=== PATIENT | female | born 1970 | race Caucasian/White ===

== ENCOUNTER 2018-07-26 11:16 | Inpatient (IN) | payer MEDICAID ==
[~2018-07-26] VITALS: Ht 154.9 cm; Wt 85.0 kg
[2018-07-26] VITALS (15 sets, daily range): BP systolic 101–166; BP diastolic 59–97
[2018-07-26 12:01] LABS: BASOPHILS % (AUTO) 0.3 % (0-1); EOSINOPHILS # (AUTO) 0.1 X10'3 (0-0.9); HEMOGLOBIN 17.3 g/dl (12.0-16.0); NEUTROPHILS % (AUTO) 76.8 % (42-75); RED BLOOD COUNT 5.67 X10'6 (4.20-5.60)
[2018-07-26 12:03] LABS: EOSINOPHILS % (AUTO) 0.7 % (0-6); HEMATOCRIT 51.5 % (35.0-45.0); LYMPHOCYTES # (AUTO) 1.5 X10'3 (1.1-4.8); MEAN CORPUSCULAR HEMOGLOBIN 30.5 PG (27.0-31.0); MEAN CORPUSCULAR HGB CONC 33.6 g/dL (33.0-36.5); MEAN CORPUSCULAR VOLUME 90.8 FL (78-98); MEAN PLATELET VOLUME 11.1 FL (7.4-10.4); MONOCYTES # (AUTO) 1.1 X10'3 (0-0.9); MONOCYTES % (AUTO) 9.2 % (2-12); NEUTROPHILS # (AUTO) 9.1 X10'3 (1.8-7.7); RED CELL DISTRIBUTION WIDTH 13.7 % (11.5-14.5); WHITE BLOOD COUNT 11.9 X10'3 (4.5-11.0)
[2018-07-26 12:19] LABS: ALANINE AMINOTRANSFERASE 29 U/L (12-78); ALBUMIN 3.9 G/DL (3.4-5.0); ALKALINE PHOSPHATASE 107 IU/L (46-116); ANION GAP 11 (8-16); ASPARTATE AMINO TRANSFERASE 19 U/L (10-37); BILIRUBIN,TOTAL 1.3 MG/DL (0.1-1.0); BLOOD UREA NITROGEN 8 MG/DL (7-18); BUN/CREATININE RATIO 10.8 (6.6-38.0); CALCIUM 9.7 MG/DL (8.5-10.1); CHLORIDE 99 MMOL/L (99-107); CREATININE 0.74 MG/DL (0.40-0.90); GLUCOSE 87 MG/DL (70-104); POTASSIUM 3.6 MMOL/L (3.5-5.1); SODIUM 135 MMOL/L (135-145); TOTAL CARBON DIOXIDE 25.5 MMOL/L (24-32); TOTAL PROTEIN 7.8 G/DL (6.4-8.2); eGFR 84 ML/MIN
[2018-07-26] MEDS ORDERED: ondansetron/PF 4mg/2ml inj IV ONE (12:25)
[2018-07-26] MEDS ORDERED: normal saline 1000ML IV soln IVB ONE (12:25)
[2018-07-26] MEDS ORDERED: morphine 4 MG/ML inj SYRINge IV PRN ×3 (12:25→16:40)
[2018-07-26 12:26] LABS: PLATELET COUNT 244 X10'3 (140-440)
[2018-07-26] MEDS ORDERED: ketorolac trometh. 30mg/ml inj. IV ONE (12:30)
[2018-07-26 12:38] LABS: URINE HCG NEGATIVE (NEG)
[2018-07-26 12:39] LABS: CLARITY,URINE CLEAR (Clear); COLOR,URINE YELLOW (Yellow); GLUCOSE, URINE NEGATIVE (Neg); KETONES,URINE >=80 mg/dl (Neg); LEUKOCYTE ESTERASE ,URINE NEGATIVE (Neg); NITRITES, URINE NEGATIVE (Neg); OCCULT BLOOD,URINE NEGATIVE (Neg); PROTEIN,URINE 30 mg/dl (Neg)
[2018-07-26 12:40] LABS: UA COLLECTION TYPE CLN CATCH MIDSTREAM
[2018-07-26 12:44] LABS: BACTERIA,URINE FEW /HPF (Neg); MUCUS STRANDS FEW /LPF (Neg); RBC,URINE NONE SEEN /HPF (0-2); SQUAMOUS EPITHELIAL CELL,UR MANY /LPF (FEW); WBC,URINE NONE SEEN /HPF (0-4)
[2018-07-26 12:47] LABS: LIPASE 90 U/L (73-393)
--- NOTE | 2018-07-26 12:50 | NUR ---
electrical manufacturing technician at bedside.
[2018-07-26] MEDS ORDERED: ceFOXitin 1 GM ADDVANTAGE BAG 1,000 GM in normal saline 100ml IV soln 100 ML IV ONE (13:55)
[2018-07-26] MEDS ORDERED: normal saline 1000ml 1,000 ML IV SCH (13:56)
[2018-07-26] MEDS ORDERED: bisacodyl 10mg suppository rectal RC PRN (14:00)
[2018-07-26] MEDS ORDERED: potassium Cl 20 mEq SR tablet PO PRN ×2 (14:00)
[2018-07-26] MEDS ORDERED: HYDROmorphone inj. 0.5 MG/0.5 ML DISP.SYRIN IV PRN (14:00)
[2018-07-26] MEDS ORDERED: magnesium Cl slow-release 64mg tablet PO PRN (14:00)
[2018-07-26] MEDS ORDERED: magnesium 4gm in 100ml NS 100 ML IV PRN (14:00)
[2018-07-26] MEDS ORDERED: ondansetron/PF 4mg/2ml inj IV PRN ×2 (14:00→16:40)
[2018-07-26] MEDS ORDERED: magnesium 2GM in 50ml NS 50 ML IV PRN (14:00)
[2018-07-26] MEDS ORDERED: acetaminophen 325mg tablet PO PRN (14:00)
[2018-07-26] MEDS ORDERED: potassium Cl 40MEQ/NS 500ml 500 ML IV PRN ×2 (14:00)
[2018-07-26] MEDS ORDERED: HYDROmorphone 1 mg/ml syringe IV PRN (14:00)
[2018-07-26] MEDS ORDERED: CITA20TA19 PO (14:12)
[2018-07-26] MEDS ORDERED: BACL20TA PO (14:12)
[2018-07-26] MEDS ORDERED: PRAV40TA3 PO (14:12)
[2018-07-26] MEDS ORDERED: CHOL10002 PO (14:12)
[2018-07-26] MEDS ORDERED: TERI14TA PO (14:12)
[2018-07-26] MEDS ORDERED: piperacillin/tazo 3.375gm/50ml 50 ML IV SCH (14:21)
[2018-07-26] MEDS ORDERED: LIDOcaine 1% 30ml preserv. free vial ONE (14:28)
[2018-07-26] MEDS ORDERED: BUPIVAcaine/PF 2.5 mg/ml (0.25%) 30ml vial ONE (14:28)
--- NOTE | 2018-07-26 14:49 | NUR ---
dr. borges at bedside,Johann PRODUCTION LINE WORKER at bedside.willt whitley patient to or.
[2018-07-26] MEDS ORDERED: midazolam 2 mg/2 ml injection ONE (14:56)
[2018-07-26] MEDS ORDERED: fentaNYL /PF 50mcg/ml 5ml ampule ONE (14:57)
[2018-07-26] MEDS ORDERED: rocuronium 10mg/ml inj IV ONE (14:58)
[2018-07-26] MEDS ORDERED: propofol inj 20 ML IV ONE (14:58)
[2018-07-26] MEDS ORDERED: ondansetron/PF 4mg/2ml inj ONE (16:02)
[2018-07-26] MEDS ORDERED: dexamethasone sod phosphate 4mg/ml inj. ONE (16:02)
[2018-07-26] MEDS ORDERED: neostigmine methylsulfate 1 MG/ML 10ml vial ONE (16:05)
[2018-07-26] MEDS ORDERED: glycopyrrolate 0.2mg/ml inj ONE (16:05)
[2018-07-26] MEDS ORDERED: CADD PCA waste documentation MC PRN (16:30)
[2018-07-26] MEDS ORDERED: naloxone 0.4 mg/ml inj IV PRN (16:30)
[2018-07-26] MEDS ORDERED: HYDROmorphone/NS 1 mg/ml CADD 50 ML IV SCH (16:30)
--- NOTE | 2018-07-26 16:35 | NUR ---
Received from OR via , accompanied by Anesthesiologist DR LARSON and report given by Anesthesiolgist DR LARSON. PT IS AWAKE, ALERT, MOVES EXT X 4. NOTED WEAKNESS ON RIGHT LE DUE TO MS. PIV RIGHT HAND 20G WITH LR 100ML/HR, ABD HAS 3 LARGE BA'S CD WITH A KALIE DRAIN, TUBING COVERED WITH ISLAND DRESSING, PT STATES SHE HAS INCONTINENCE AND IS CURRENTLY USING A BEDPAN, SCD'S, NO C/O PAIN, VANESSA ICE WATER.
[2018-07-26] MEDS ORDERED: ringers solution, lacted 1,000 ML IV SCH (16:37)
[2018-07-26] MEDS ORDERED: meperidine/PF 25mg/ml syringe IV PRN ×3 (16:40)
[2018-07-26] MEDS ORDERED: proCHLORperazine 10 MG/2 ml inj IV PRN (16:40)
--- NOTE | 2018-07-26 17:09 | NUR ---
Report called to receiving nurse. Transferred via GURNEY Belongings [PANTS, SLIPPERS WITH PATIENT Special Issues communicated to receiving nurse MEGAN CABAN. PT IS AWAKE, ALERT, MOVENING EXT X 4, NO C/O PAIN, BA'S ON ABD CD, KALIE DRAINED OF 25MLS SANQ DRAINAGE, SCDS ON PT, PIV PATENT, CADD SET UP AND PT EDUCATED IN USE.
[2018-07-26] MEDS: Potassium Cl inj 20 MEQ in ringers solution, lacted 1,000 ML IV SCH (17:48)
--- NOTE | 2018-07-26 17:56 | NUR ---
UNABLE TO GET CADD TO SCAN. FLOOR NURSES ON SURGICAL OFFERED TO CONTINUE WORKING ON IT. CADD IS SET UP FOR PATIENT USE.
[2018-07-26] MEDS: HYDROmorphone/NS 1 mg/ml CADD 50 ML IV SCH ×3 (17:58→23:00)
--- NOTE | 2018-07-26 18:00 | NUR ---
Received report from ARSH Min. Patient arrived to floor. VSS. CADD set up. No complaints. Dressings CDI. minimal drainage in KALIE. Will give report to lieutenant shift supervisor RN.
--- NOTE | 2018-07-26 18:19 | NUR ---
Problems reprioritized. Patient report given, questions answered & plan of care reviewed with ARSH Sharp.
--- NOTE | 2018-07-26 18:31 | NUR ---
Patient in room [facility]. I have received report from Tatiana CABAN and had the opportunity to ask questions and assume patient care.
[2018-07-26] MEDS ORDERED: baclofen 10mg tablet PO ONE (21:35)
--- NOTE | 2018-07-26 21:47 | NUR ---
Rc'd order from Dr. Lomas for patient to have one time dose of her baclofen, all other meds are to be addressed by A.M. hospitalist.
[2018-07-26] MEDS: cefotetan 2gm/isosm dext IVPB 50 ML IV SCH (23:49)
[2018-07-27] VITALS: BP 100/58
[2018-07-27] MEDS ORDERED: ceFOXitin 1 GM ADDVANTAGE BAG 1,000 GM in normal saline 100ml IV soln 100 ML IV SCH ×2
[2018-07-27] MEDS: HYDROmorphone/NS 1 mg/ml CADD 50 ML IV SCH ×5 (01:00→09:00)
[2018-07-27] MEDS: Potassium Cl inj 20 MEQ in ringers solution, lacted 1,000 ML IV SCH (01:58)
--- NOTE | 2018-07-27 05:55 | NUR ---
Problems reprioritized. Patient report given, questions answered & plan of care reviewed with Nicole CABAN.
[2018-07-27 06:09] LABS: EOSINOPHILS % (AUTO) 0 % (0-6); HEMATOCRIT 40.4 % (35.0-45.0); LYMPHOCYTES # (AUTO) 0.7 X10'3 (1.1-4.8); LYMPHOCYTES % (AUTO) 6.5 % (21-51)
--- NOTE | 2018-07-27 06:10 | NUR ---
Patient in room [facility]. I have received report from Lila RN, tony RN, and had the opportunity to ask questions and assume patient care.
[2018-07-27 06:11] LABS: BASOPHILS % (AUTO) 0.3 % (0-1); HEMOGLOBIN 13.7 g/dl (12.0-16.0); MEAN CORPUSCULAR HEMOGLOBIN 30.8 PG (27.0-31.0); MEAN CORPUSCULAR VOLUME 90.6 FL (78-98); MEAN PLATELET VOLUME 11.6 FL (7.4-10.4); MONOCYTES # (AUTO) 0.7 X10'3 (0-0.9); MONOCYTES % (AUTO) 6.2 % (2-12); NEUTROPHILS # (AUTO) 9.5 X10'3 (1.8-7.7); PLATELET COUNT 207 X10'3 (140-440); RED BLOOD COUNT 4.46 X10'6 (4.20-5.60); RED CELL DISTRIBUTION WIDTH 13.7 % (11.5-14.5); WHITE BLOOD COUNT 10.9 X10'3 (4.5-11.0)
[2018-07-27 06:19] LABS: ALANINE AMINOTRANSFERASE 26 U/L (12-78); ALBUMIN 2.7 G/DL (3.4-5.0); ALBUMIN/GLOBULIN RATIO 0.9 (1.1-1.5); ALKALINE PHOSPHATASE 78 IU/L (46-116); ANION GAP 9 (8-16); ASPARTATE AMINO TRANSFERASE 32 U/L (10-37); BILIRUBIN,TOTAL 0.8 MG/DL (0.1-1.0); BLOOD UREA NITROGEN 6 MG/DL (7-18); BUN/CREATININE RATIO 9.7 (6.6-38.0); CALCIUM 8.6 MG/DL (8.5-10.1); CHLORIDE 106 MMOL/L (99-107); CREATININE 0.62 MG/DL (0.40-0.90); GLUCOSE 99 MG/DL (70-104); MAGNESIUM 1.8 MG/DL (1.5-2.4); POTASSIUM 4.5 MMOL/L (3.5-5.1); SODIUM 138 MMOL/L (135-145); TOTAL CARBON DIOXIDE 22.7 MMOL/L (24-32); TOTAL PROTEIN 5.8 G/DL (6.4-8.2); eGFR > 90 ML/MIN
[2018-07-27 06:46] LABS: LARGE PLATELETS FEW; PLATELET ESTIMATE NORMAL
[2018-07-27] MEDS: cefotetan 2gm/isosm dext IVPB 50 ML IV SCH (07:16)
[2018-07-27 08:00] VITALS: BP 93/56
[2018-07-27] MEDS ORDERED: K and/or MAG REPLACEMENT MC SCH (08:00)
[2018-07-27] MEDS ORDERED: enoxaparin 40mg/0.4ml syringe SQ SCH (08:00)
[2018-07-27] MEDS ORDERED: TERIFLUNOMIDE 14 MG PO SCH (11:40)
[2018-07-27] MEDS ORDERED: atorvastatin 10mg tablet PO SCH ×2 (11:41→21:00)
[2018-07-27] MEDS ORDERED: baclofen 10mg tablet PO SCH (11:41)
[2018-07-27] MEDS ORDERED: citalopram 20mg tablet PO SCH (11:42)
[2018-07-27] MEDS ORDERED: HYDR-4353 PO (11:45)
[2018-07-27] MEDS ORDERED: HYDROcodone/acetaminophen 10/325mg tab PO PRN (11:50)
[2018-07-27] MEDS ORDERED: magnesium hydroxide 30ml (MOM) UD suspension PO PRN (12:25)
[2018-07-27 12:50] VITALS: BP 89/46
--- NOTE | 2018-07-27 12:51 | NUR ---
Dr. Boland aware of low BP
--- NOTE | 2018-07-27 13:10 | NUR ---
Patient to be discharged after she eats lunch and tolerates.
--- NOTE | 2018-07-27 14:38 | NUR ---
Patient discharged with all belongings and education packet. Will call Dr. Boland with any questions. A&Ox4. VSS
[2018-07-28] MEDS ORDERED: vitamin D (cholecalciferol) 1,000 unit tablet PO SCH (08:00)
== END 2018-07-27 14:35 | disposition home or self-care (01) | DRG 263 ==
LOC: ER 11:17 → SUR 3N 16:03
PROVIDERS: ADMIT Surgery; ATTEND Surgery
PROC: 0DNL4ZZ Release Transverse Colon, Percutaneous Endoscopic Approach (ICD-10-PCS; 2018-07-26)
PROC: 0DNU4ZZ Release Omentum, Percutaneous Endoscopic Approach (ICD-10-PCS; 2018-07-26)
PROC: 0FN44ZZ Release Gallbladder, Percutaneous Endoscopic Approach (ICD-10-PCS; 2018-07-26)
PROC: 0FT44ZZ Resection of Gallbladder, Percutaneous Endoscopic Approach (ICD-10-PCS; principal; 2018-07-26 14:51)
DX: K80.00 Calculus of gallbladder with acute cholecystitis without obstruction (principal); G35 Multiple sclerosis; E78.5 Hyperlipidemia, unspecified; F17.210 Nicotine dependence, cigarettes, uncomplicated; K66.0 Peritoneal adhesions (postprocedural) (postinfection); F32.9 Major depressive disorder, single episode, unspecified; F41.9 Anxiety disorder, unspecified; G89.29 Other chronic pain; K59.00 Constipation, unspecified; Z90.49 Acquired absence of other specified parts of digestive tract; Z80.3 Family history of malignant neoplasm of breast; Z98.51 Tubal ligation status; Z80.42 Family history of malignant neoplasm of prostate; Z71.6 Tobacco abuse counseling; Z79.899 Other long term (current) drug therapy
CPT/HCPCS: 36415; 76700; 80053; 81001; 81025; 83690; 83735; 85025; 85610; 96365; 96375; 99285; A6251; A7000; G0378; J1100; J1170; J1650; J1885; J2250; J2405; J2543; J2704; J2710; J3010; J3480; J3490; J7030; J7120

== ENCOUNTER 2024-12-16 02:14 | Inpatient (IN) | payer MEDICAID ==
[~2024-12-16] VITALS: Ht 160 cm; Wt 78.8 kg
[~2024-12-16 02:14] MED LIST: BACL20TA PO; CHOL10002 PO; CITA20TA19 PO; PRAV40TA17 PO; TERI14TA2 PO
--- NOTE | 2024-12-16 02:35 | Physician Documentation ---
History of Present Illness ~ Chief Complaint: Hip pain Stated Complaint: HIP PAIN Time Seen by MD: 02:28 HPI Patient presents to the emergency room for evaluation of right hip pain. She is sent from [facility] for hip fracture. No other injuries. Medication Reconciliation Allergies: Coded Allergies: No Known Allergies (Unverified , 07/26/18) Scheduled Baclofen (Baclofen), 2 TABLET PO BID, (Reported) Cholecalciferol (Vitamin D3) (Vitamin D3), 2 TAB PO DAILY, (Reported) Citalopram Hydrobromide (Celexa), 1 TAB PO DAILY, (Reported) Pravastatin Sodium (Pravastatin Sodium), 1 TAB PO HS, (Reported) Teriflunomide (Aubagio), 1 TAB PO DAILY, (Reported) Past Medical History Past Surgical History: noncontributory Patient History: FH: breast cancer MOTHER FH: prostate cancer FATHER Alcohol Use: None Lives In: Home Review of Systems ROS All review of systems negative except as per HPI Physical Exam Physical Exam General: Patient is awake, alert, oriented x4 in mild distress Head: Normocephalic and atraumatic. Eyes: Conjunctival normal. EOMI. PERRL. ENT: Mucous membranes moist. Neck: Supple, trachea is midline. Chest: Clear to auscultation bilaterally without rales, rhonchi, or wheezes. There is no accessory muscle use or retractions. Cardiac: RRR without murmurs, gallops, or rubs. Abd: Soft, nondistended, nontender, with normoactive bowel sounds. No guarding, rebound, or rigidity. Extremities: Positive log roll to right hip. 2+ dorsalis pedis pulses bilaterally Medical Decision Making Findings Patient presents to the emergency room sent from [facility] with a right hip fracture. Patient's pain is currently controlled in his neurovascularly intact. We will admit for definitive management and orthopedic consult Differential Dx:Considerations: Include: Avascular necrosis, Arthritis, Arthritis-Rheumatoid, Arthritis-Septic, Bursitis, Contusion, Dislocation, DJD, Fracture-femur, Fracture-hip, Fracture-open, Fracture-pelvis, Gout, Hernia, Ptqg-Zmexx-xzuczyt dz., Neurovascular injury, Slip capital femoral epip, Sprain, Transient synovitis, Other Departure Admitted to Inpatient Unit: yes, to hospitalist Impression: Primary Impression: Fracture of femur Condition: Guarded Referrals: NO PRIMARY CARE PROVIDER (PCP) Signature Scribe Signature: No scribe Attestation: The note accurately reflects work and decisions made by me.Ab Sarkar MD 12/16/24 02:35 AB SARKAR MD Dec 16, 2024 02:35
[2024-12-16] MEDS ORDERED: magnesium Cl slow-release 64mg tablet PO PRN ×2 (03:45→04:55)
[2024-12-16] MEDS ORDERED: mag hydrox/Alum hydrox/simeth 30ml oral suspension PO PRN (03:45)
[2024-12-16] MEDS ORDERED: potassium Cl 40MEQ/1/2NS 520ml 520 ML IV PRN ×2 (03:45→04:55)
[2024-12-16] MEDS ORDERED: potassium Cl 20 mEq SR tablet PO PRN ×4 (03:45→04:55)
[2024-12-16] MEDS ORDERED: magnesium sulf-water 4G/100mL 100 ML IV PRN ×2 (03:45→04:55)
[2024-12-16] MEDS ORDERED: magnesium sulf-water 2g/50mL 50 ML IV PRN ×2 (03:45→04:55)
[2024-12-16] MEDS: HYDROmorphone inj. 0.5 MG/0.5 ML DISP.SYRIN IV ONE (03:54)
[2024-12-16] MEDS ORDERED: morphine 4 MG/ML inj SYRINge IV PRN (04:25)
[2024-12-16 04:36] LABS: LEUKOCYTE ESTERASE ,URINE TRACE (Neg); NITRITES, URINE POSITIVE (Neg); OCCULT BLOOD,URINE TRACE-INTACT (Neg)
[2024-12-16 04:42] LABS: UA COLLECTION TYPE NON-SPECIFIED
[2024-12-16 04:44] LABS: SQUAMOUS EPITHELIAL CELL,UR FEW /LPF (FEW)
--- NOTE | 2024-12-16 04:44 | HISTORY AND PHYSICAL-Residence ---
History & Physical Providers to CC Resident Creating Document: CAMERON MATHIS RES ~ History of Present Illness Reason for Admit\Complaint: Hip pain History of Present Illness 54-year-old female with history of hypertension, osteoporosis, anxiety, multiple sclerosis is transferred from [facility] for hip fracture. She states that she had a ground level fall in her hallway yesterday evening. She states that she just laid there for a few minutes until her came and called 911. She was taken to [facility] where x-ray hip was done and it showed acute displaced fracture seen in the greater tuberosity of left femur with osteoarthritic changes in left hip joint and was transferred here. She states that her pain is 5/10, and that there is no swelling or bruising. She states that she had an episode of vomiting when she went to [facility] from the pain. She denies nausea now. She denies head trauma and confusion. She states that she had burning micturition, frequency, urgency since yesterday and she was about to go to her PCP today. Her urinalysis in [facility] is positive for UTI. She also complains diffuse abdominal discomfort which has been constant since yesterday. Her last bowel movement was yesterday. She denies constipation, diarrhea, fever, chills, back pain, changes in appetite or weight, chest pain, shortness of breath, palpitations. She states that she has os teoporosis and takes calcium for it, she also took IV Reclast once. Allergies: Coded Allergies: No Known Allergies (Unverified , 12/16/24) Home Medications Home Medications Active Reported Vitamin D3 (Cholecalciferol (Vitamin D3)) 1,000 Unit Tablet 2 Tab PO DAILY 30 Days Celexa (Citalopram Hydrobromide) 20 Mg Tablet 1 Tab PO DAILY 30 Days Pravastatin Sodium 40 Mg Tablet 1 Tab PO HS 30 Days Aubagio (Teriflunomide) 14 Mg Tablet 1 Tab PO DAILY Baclofen 20 Mg Tablet 2 Tablet PO BID Past Medical History Past Medical History Osteoporosis Multiple sclerosis Hypertension Depression/ Anxiety Chronic pain Past Surgical History Surgical History Comment Tubal ligation Tonsillectomy Family History Family History: FH: breast cancer MOTHER FH: prostate cancer FATHER Past Social History Social History Comment She is an active smoker, she smokes 1.5 cigarettes per day for the past 35 years She drinks 4-6 beers every other day for the past 30 years She smokes marijuana everyday for the past 40 years She lives with her at home Alcohol Use: None Lives In: Home ROS ROS Constitutional: No fever, chills, dizziness, weight gain or loss Eyes: No pain, erythema, discharge, blurring of vision ENT: No sore throat, epistaxis, tinnitus Cardiovascular:No chest pain, palpitations, syncope, lower extremity edema, paroxysmal nocturnal dyspnea Respiratory: No Shortness of breath and cough, No hemoptysis. Gastrointestinal:Reports diffuse Abdominal discomfort, vomiting, No nausea,constipation,diarrhea. Normal appetite. No hematemesis or melena. Genitourinary: Reports burning micturition, frequency, urgency Musculoskeletal: Reports left hip pain, No Swelling, pain in bilateral lower legs. Integumentary: No change in skin, hair, nails. No swelling, bruising, abrasions Neurologic: No weakness,No headache, neck pain, numbness or tingling of the e xtremities, Psychiatric: No delusions, depression, loss of interest in normal activity or change in sleep pattern, hallucinations, suicidal ideations Endocrine: No fatigue, no weakness. polydipsia, polyuria, change in appetite, heat or cold intolerance, sweating, dry skin Hematological: No bleeding, petechiae, bruising Allergies: No asthma or urticaria Exam Vitals: Vital Signs Date Time Temp Pulse Resp B/P (MAP) Pulse Ox O2 Delivery O2 Flow Rate FiO2 12/16/24 03:56 95 14 114/69 (84) 96 12/16/24 02:39 97.5 0 General: Awake , alert, and oriented x4, resting comfortably in the bed, in no acute distress HEENT: Atraumatic, normocephalic, EOMI, anicteric sclera ; pink conjunctiva Neck: Trachea midline. Supple, full range of motion, no JVD Cardiac: Regular rhythm, regular rate with no murmurs all over the precordium. Respiratory: Equal breath sounds bilaterally, no tachypnea, no wheezing ,rub or rales, Chest wall is symmetric and without deformity. Gastrointestinal: Abdomen symmetric, non-distended, soft, non-tender, normal bowel sounds x4 quadrant, normoactive, no hepatosplenomegaly Musculoskeletal: Left hip tenderness present, decreased range of motion present, no bruising, swelling, No pedal edema, no cyanosis Neurological: Speech is clear, alert, and oriented x 4. No motor or sensory d eficit, deep tendon reflexes normal, cerebellar intact. Cranial nerves II-XII intact. Skin: Warm and dry Additional Plan Left femur fracture X-ray hip at [facility] shows acute displaced fracture of greater tuberosity of left femur with osteoarthritis changes in left hip joint Vitals are stable Plan: Consult orthopedic surgery Follow up CBC, CMP, coagulation profile UTI Urinalysis at [facility] is positive for UTI Started IV ceftriaxone 1 g daily Follow up urinalysis, urine culture Hypertension Blood pressure is normal Patient uses lisinopril 20 mg at home We will continue after med reconciliation Multiple sclerosis We will continue home medication baclofen, pending home med reconciliation Osteoporosis We will continue home medication calcium, pending home med reconciliation Depression/ Anxiety We will continue home medication citalopram after home med reconciliation Alcohol use disorder, drug abuse Consulted social studies department chair and substance use navigator Code status: Full code DVT prophylaxis: SCD Pain management: Morphine 1 mg/2 mg p.r.n. Diet/nutrition: NPO Prognosis: Guarded Disposition: Consult orthopedic surgery, PT eval and DC plan Resident MD attestation: The patient note has been reviewed and supervised by senior residents PGY-2/ PGY-3. Patient was seen, examined and discussed with attending physician. Cameron Mathis MD Internal Medicine resident, PGY-1 Date of Service: Dec 16, 2024 Billing Provider: MICHELLE MONGE MD, PREETHI, RES Dec 16, 2024 04:44
[2024-12-16] MEDS ORDERED: dextrose 50%-water 50ml dispensing syringe IV PRN (04:55)
[2024-12-16] MEDS ORDERED: haloperidol lactate 5mg/ml inj IM PRN (04:55)
[2024-12-16] MEDS ORDERED: LISI20TA28 PO (04:56)
[2024-12-16] MEDS ORDERED: BUSP10TA11 PO ×2 (04:58→12:53)
[2024-12-16 05:00] VITALS: BP 95/62; PULSE 87; RESP 16; TEMP 97.2; O2SAT 94
[2024-12-16] MEDS ORDERED: IBUP-1986 PO (05:01)
[2024-12-16 05:05] LABS: URINE AMPHETAMINE SCREEN NEGATIVE (Neg); URINE BARBITUATE SCREEN NEGATIVE (Neg); URINE BENZODIAZEPINES SCREEN NEGATIVE (Neg); URINE CANNABINOID SCREEN POSITIVE (Neg); URINE COCAINE SCREEN NEGATIVE (Neg); URINE METHADONE SCREEN NEGATIVE (Neg); URINE OPIATE SCREEN POSITIVE (Neg); URINE PHENCYCLIDINE SCREEN NEGATIVE (Neg)
[2024-12-16 06:00] VITALS: BP 95/62; PULSE 87; RESP 16; TEMP 97.2; O2SAT 94
[2024-12-16 06:04] LABS: MEAN PLATELET VOLUME 10.4 FL (7.4-10.4); RED CELL DISTRIBUTION WIDTH 13.9 % (11.5-14.5)
[2024-12-16 06:16] LABS: APTT 28 SECONDS (22-32); INR 1.0 INR
[2024-12-16 06:26] LABS: CREATININE 0.44 MG/DL (0.40-0.90); PHOSPHORUS 4.4 MG/DL (2.3-4.5); PRO BRAIN NATRIURETIC PEPTIDE 48 PG/ML (0-125); TOTAL CARBON DIOXIDE 23.6 MMOL/L (24-32); eCRCL 121 ML/MIN; eGFR > 90 ML/MIN
[2024-12-16] MEDS: thiamine 100mg/ml 2ml inj. IV SCH (07:49)
[2024-12-16] MEDS: ibuprofen tablet 400 MG TABLET PO SCH (07:52)
[2024-12-16] MEDS: CefTRIAXone/D5W-Rocephin 1gm 50 ML IV SCH (07:56)
[2024-12-16 08:00] VITALS: RESP 14
[2024-12-16] MEDS: docusate sod 100mg capsule PO SCH (08:00)
[2024-12-16] MEDS: K and/or MAG REPLACEMENT MC SCH (08:00)
[2024-12-16] MEDS: folic acid 1mg/0.2ml inj IV SCH (08:00)
[2024-12-16] MEDS ORDERED: K and/or MAG REPLACEMENT MC SCH (08:00)
--- NOTE | 2024-12-16 08:52 | ELECTROCARDIOGRAPH REPORT ---
[facility] Test Date: 2024-12-16 Test Time: 02:53:01 Pat Name: CORBY MALDONADO Department: EMERGENCY ROOM Room: [place] [id number] A Gender: F Blind Escort: : 1970 Requested By: ANA MAZARIEGOS Order Number: [id number] Reading MD: Dr. Moy Sahu Measurements Intervals [place] Rate: 88 P: 59 UT: 128 QRS: 38 QRSD: 90 T: 31 QT: 358 QTc: 434 Interpretive Statements Sinus rhythm Electronically Signed On 12-17-2024 21:42:[address] Moy Sahu Please click the below link to view image of tracing.
--- NOTE | 2024-12-16 10:00 | RADIOLOGY REPORT ---
CLINICAL INDICATION: pain hip fracture TECHNIQUE: 1 radiographic views of the pelvis and 1 view of the left hip were obtained. Comparison: None FINDINGS/IMPRESSION: There is a mildly displaced fracture of the left intertrochanteric region.
[2024-12-16 11:52] LABS: ETHANOL < 10 MG/DL (<10)
[2024-12-16] MEDS: FLU VACC TS2025-26(6MOS UP)/PF (FLULAVAL) 45 MCG/0.5 ML SYRINGE IMVAC ONE (12:20)
--- NOTE | 2024-12-16 12:33 | CONSULTATION REPORT ---
History of Present Illness Providers to CC ~ Reason for Admit\\Admit Dx: Hip pain Refering MD: Dr Brand History of Present Illness she is a 54 yr old woman Patient presents to the emergency room for evaluation of right hip pain after mechanical fall. She is sent from [facility] for hip fracture. No other injuries. History of MS, uses a walker, left leg is her :good" leg. Reports numbness to the bottom of her feet, normally Allergies: Coded Allergies: No Known Allergies (Unverified , 12/16/24) Home Medications Home Medications Active Reported Ibuprofen 800 Mg Tablet 1 Tab PO BID 10 Days Buspar* (Buspirone HCl) 10 Mg Tablet 1 Tab PO Q12H 30 Days Lisinopril 20 Mg Tablet 1 Tab PO DAILY 30 Days Celexa (Citalopram Hydrobromide) 20 Mg Tablet 1 Tab PO DAILY 30 Days Pravastatin Sodium 40 Mg Tablet 1 Tab PO HS 30 Days Baclofen 20 Mg Tablet 2 Tablet PO BID Past Medical History Medical History Comment Multiple Sclerosis Past Family History Family History: FH: breast cancer MOTHER FH: prostate cancer FATHER Physical Exam Last Vital Signs Recorded: Temperature: 97.2, Source: Temporal, Heart Rate: 87, Respiratory Rate: 14, BP: 95/62, Pulse Oximetry: 94, Weight: 78.800 General Appearance: alert, WD/WN, no apparent distress EENT: PERRL/EOMI Neck: normal inspection Respiratory: lungs clear Extremities l hip skin intact, tender groin and lateral hip, leg slightly short, knee ankle nontender Results Results/Orders Results/Orders left hip intertrochanteric fracture with intact joint Diagram Lab Result Diagram: 12/16/24 0523 12/16/24522 Assessment/Plan Problems/Diagnosis: (1) Intertrochanteric fracture of left femur Additional Plan plan ORIF tomorrow morning, NPO after midnight Risks and beneftis discussed with patient anf her Problem Qualifiers (1) Intertrochanteric fracture of left femur: Qualified Codes: S72.142A - Displaced intertrochanteric fracture of left femur, initial encounter for closed fracture ANNE BAUTISTA Jr., MD Dec 16, 2024 12:33
[2024-12-16 14:00] VITALS: BP 112/59; PULSE 91; RESP 14; TEMP 98; O2SAT 93
--- NOTE | 2024-12-16 16:42 | PROGRESS NOTE- Residence ---
Progress Note - Resident Providers to CC Resident Creating Document: NAWAF MULLEN RES CC: BLANQUITA PASCUAL MD ~ Antibiotic Timeout Antibiotic Ordered?: Yes Subjective Patient was seen and examined at bedside. Patient stated that she does have mild pain near the left hip. Patient does not have any other acute symptoms at this point Objective Vital Signs Date Time Temp Pulse Resp B/P (MAP) Pulse Ox O2 Delivery O2 Flow Rate FiO2 12/16/24 14:00 98.0 91 14 112/59 (76) 93 Room Air 12/16/24 02:39 0 Result Diagram: 12/16/2452212/16/24522 General: Awake, oriented to person, place and time. HEENT: Conjunctive are pink, sclerae clear, no icterus, pupil is equal in both sides, reactive to light, no ear discharge, no pharyngeal erythema or an edema. Neck: Supple, no JVD, no lymphadenopathy and thyromegaly. Chest: Equal air entry on both lungs, no additional sounds no rhonchi no wheezing at the moment. Cardiovascular: S1-S2 regular sinus rhythm and, regular rate, no gallops, no rubs, no murmurs Abdomen: No visible peristalsis, Bowel sounds present on auscultation, soft, no guarding, no rigidity Extremities: no pitting edema bilaterally, capillary refill intact, peripheral pulsations are intact on both sides; left tender groin and lateral hip, left leg appears slightly short Central Nervous System: No focal neurological deficits, no motor or sensory weakness in all 4 extremities, could move all 4 extremities, 2+ deep tendon reflexes, negative Babinski. Musculoskeletal: No joint swelling, deformities, inflammations, and no scoliosis and back tenderness Skin: Warm and dry. Dry oral mucosa. Coagulation Studies Laboratory Tests Test 12/16/24 05:23 Prothrombin Time 10.2 SECONDS (9.0-12.0) INR International Normalized Ratio 1.0 INR Activated Partial Thromboplast Time 28 SECONDS (22-32) Coagulation Comments Advance Care Planning Advanced Care plannin - 30 Minutes Assessment Assessment A 54-year-old female with history of hypertension, osteoporosis, anxiety, multiple sclerosis is transferred from [facility] for hip fracture after mechanical fall. Plan Plan Left femur fracture Post mechanical fall X-ray hip at [facility] shows acute displaced fracture of greater tuberosity of left femur with osteoarthritis changes in left hip joint Repeat hip x-ray at our facility showed :There is a mildly displaced fracture of the left intertrochanteric region. Orthopedic surgeon Dr. Ramos was consulted Plan recommended ORIF tomorrow -NPO from midnight -continue morphine 2 mg q.4h p.r.n. and 1 mg q.4h p.r.n. Urinary tract infection Urinalysis at [facility] is positive for UTI Urinalysis at our facility also tested positive for nitrates and leukocyte esterase, WBC elevated at 11.2 Plan Continue ceftriaxone Follow up urinalysis, urine culture Hypertension Blood pressure normal range Continue Patient's home medication lisinopril 20 mg Multiple sclerosis Continue home medication baclofen History of Osteoporosis Patient's previous reconciled med shows vitamin-D tablet We will recommend calcium and vitamin-D supplementations on discharge Depression/ Anxiety Continue home medication buspirone and citalopram Alcohol use disorder, drug abuse Initiated the patient on moderate alcohol withdrawal protocol Utox was positive for cannabinoids Ethyl alcohol <10 Patient stated that her last drink was two days ago Consulted criminal justice social worker and substance use navigator Code status: Full code DVT prophylaxis: SCD Pain management: Morphine 1 mg/2 mg p.r.n. Diet/nutrition: NPO after midnight Prognosis: Guarded Disposition: Patient will undergo ORIF tomorrow by Dr. Ramos. NPO after midnight Nawaf Mullen MD Internal medicine resident PGY-1 Date of Service: Dec 16, 2024 Billing Provider: BLANQUITA PASCUAL MD Common Visit Codes: [id number] INP/OBS CARE(HIGH) NAWAF MULLEN, RES Dec 16, 2024 16:42 BLANQUITA PASCUAL MD Dec 17, 2024 08:38
[2024-12-16 18:30] VITALS: BP 133/78; PULSE 100; RESP 16; TEMP 98.2; O2SAT 93
[2024-12-16 22:00] VITALS: BP 121/57; PULSE 94; RESP 15; TEMP 96.4; O2SAT 94
[2024-12-17] VITALS (19 sets, daily range): BP systolic 86–136; BP diastolic 37–75; PULSE 67–97; RESP 10–18; TEMP 97–98.4; O2SAT 79–100
[2024-12-17 05:46] LABS: MEAN PLATELET VOLUME 10.4 FL (7.4-10.4); RED CELL DISTRIBUTION WIDTH 13.7 % (11.5-14.5)
[2024-12-17] MEDS: ondansetron/PF 4mg/2ml inj IV PRN (05:54)
[2024-12-17] MEDS: morphine 4 MG/ML inj SYRINge IV PRN (05:55)
[2024-12-17 06:08] LABS: CHOL/HDL RATIO 3.6 (0.00-4.99); CREATININE 0.48 MG/DL (0.40-0.90); LDL CHOLESTEROL 125 MG/DL (50-100); TOTAL CARBON DIOXIDE 26.2 MMOL/L (24-32); eCRCL 111 ML/MIN; eGFR > 90 ML/MIN
[2024-12-17] MEDS ORDERED: BUPIVAcaine 2.5mg/ml inj 50ml vial (contains preservative) ONE (06:49)
[2024-12-17] MEDS ORDERED: fentaNYL/PF 50MCG/1 ML 2ML syringe ONE ×2 (07:22→07:57)
[2024-12-17] MEDS ORDERED: midazolam 1 mg/ML 2ml injection ONE (07:23)
[2024-12-17] MEDS ORDERED: acetaminophen 1,000mg/100ml IV 100 ML IV ONE ×2 (07:34)
[2024-12-17] MEDS ORDERED: propofol inj 20 ML IV ONE (07:34)
[2024-12-17] MEDS ORDERED: LIDOcaine 1%/PF 5ML 10 MG/ML VIAL ONE (07:34)
[2024-12-17] MEDS ORDERED: dexamethasone sod phosphate 4mg/ml inj. ONE (07:37)
[2024-12-17] MEDS ORDERED: ondansetron/PF 4mg/2ml inj ONE (07:37)
[2024-12-17] MEDS ORDERED: enalaprilat 1.25mg/ml 2ml vial IV PRN (08:10)
[2024-12-17] MEDS ORDERED: ondansetron/PF 4mg/2ml inj IV PRN (08:10)
[2024-12-17] MEDS ORDERED: morphine 4 MG/ML inj SYRINge IV PRN (08:10)
[2024-12-17] MEDS ORDERED: HYDROmorphone/PF 0.2 MG/ML SYRINGE IV PRN ×2 (08:10)
[2024-12-17] MEDS ORDERED: hydrALAZINE 20mg/ml inj. IV PRN (08:10)
--- NOTE | 2024-12-17 08:19 | OPERATIVE REPORT ---
Operative Report Providers to ~ Date of Procedure: Dec 17, 2024 Pre-Operative Diagnosis: Left hip intertrochanteric fracture closed Post-Operative Diagnosis SAME as PRE-Op Procedure Performed Open reduction internal fixation left hip intertrochanteric fracture Surgeon: Cj Ramos MD Ultrasound Manager None Anesthesiologist: Joo Abbott Type of Anesthesia: General Findings: Prosthetics\Implants used: [employer] hip fracture nail 130 degree angle 11 mm x 320 mm with 95 mm hip screw Estimated Blood Loss: 50 mL Specimen Removed: None Description of Procedure: The patient is a 54-year-old woman with a history of multiple sclerosis who suffered a fall injuring her left hip. He has an intertrochanteric fracture that requires surgery for stabilization. Risks and benefits were discussed with the patient and her . The risks include but not limited to bleeding, nerve or vessel damage, failure of fixation, blood clots and even . She agreed to proceed. Anesthetic was given in the operating room along with the antibiotics. She was placed on the fracture table and positioned appropriately. The left hip and leg were prepped and draped in usual manner an incision was made superior to the greater trochanter on the left and under fluoro guidance a guide pin was advanced down the shaft of the femur. Over drilling was done and the because prior measurements were done selecting the proper nail the nail was advanced down the femoral canal. A 2nd incision was made over the lateral femur for placed with the hip screw. A guide pin was drilled into the femoral head and measured and position was checked under fluoro. The drilling was done and the screw was placed and locked in its proper orientation. The insertion guide was removed and final fluoro images were obtained. Fracture was well reduced this point. Incision was were irrigated and closed with suture. Marcaine was injected and a dressing was then applied. She was taken off the fracture table and returned to the recovery room in stable condition. She tolerated the procedure well. Counts repoted as correct: Yes CJ RAMOS Jr., MD Dec 17, 2024 08:19
[2024-12-17] MEDS: BUPIVAcaine/PF 2.5 mg/ml (0.25%) 30ml vial IJ ONE (08:23)
--- NOTE | 2024-12-17 09:28 | RADIOLOGY REPORT ---
LEFT HIP RADIOGRAPH. CLINICAL INDICATION: post op LEFT HIP TECHNIQUE: 4 views of the left hip were obtained. FINDINGS: ORIF of the left hip transfixing proximal femoral shaft fracture IMPRESSION: 1. ORIF of the left hip transfixing proximal femoral shaft fracture
--- NOTE | 2024-12-17 18:48 | PROGRESS NOTE- Residence ---
Progress Note - Resident Providers to CC Resident Creating Document: NAWAF MULLEN RES CC: LAILA HORN MD ~ Antibiotic Timeout Antibiotic Ordered?: Yes Subjective Patient was seen and examined at bedside. Patient stated that she does have mild pain near the left hip. Patient underwent ORIF procedure today Objective Vital Signs Date Time Temp Pulse Resp B/P (MAP) Pulse Ox O2 Delivery O2 Flow Rate FiO2 12/17/24 13:18 93 12/17/24 09:28 16 94/50 (65) 95 Nasal Cannula 3.0 12/17/24 08:27 97.7 Result Diagram: 12/17/2415 12/17/2415 General: Awake, oriented to person, place and time. HEENT: Conjunctive are pink, sclerae clear, no icterus, pupil is equal in both sides, reactive to light, no ear discharge, no pharyngeal erythema or an edema. Neck: Supple, no JVD, no lymphadenopathy and thyromegaly. Chest: Equal air entry on both lungs, no additional sounds no rhonchi no wheezing at the moment. Cardiovascular: S1-S2 regular sinus rhythm and, regular rate, no gallops, no rubs, no murmurs Abdomen: No visible peristalsis, Bowel sounds present on auscultation, soft, no guarding, no rigidity Extremities: no pitting edema bilaterally, capillary refill intact, peripheral pulsations are intact on both sides; left lower extremity covered in surgical dressing Central Nervous System: No focal neurological deficits, no motor or sensory weakness in all 4 extremities, could move all 4 extremities, 2+ deep tendon reflexes, negative Babinski. Musculoskeletal: No joint swelling, deformities, inflammations, and no scoliosis and back tenderness Skin: Warm and dry. Dry oral mucosa. Coagulation Studies Laboratory Tests Test 12/16/24 05:23 Prothrombin Time 10.2 SECONDS (9.0-12.0) INR International Normalized Ratio 1.0 INR Activated Partial Thromboplast Time 28 SECONDS (22-32) Coagulation Comments Advance Care Planning Advanced Care plannin - 30 Minutes Assessment Assessment A 54-year-old female with history of hypertension, osteoporosis, anxiety, multiple sclerosis is transferred from [facility] for hip fracture after mechanical fall. Plan Plan Left femur fracture post mechanical fall s/p ORIF today X-ray hip at [facility] shows acute displaced fracture of greater tuberosity of left femur with osteoarthritis changes in left hip joint Repeat hip x-ray at our facility showed :There is a mildly displaced fracture of the left intertrochanteric region. Orthopedic surgeon Dr. Ramos was consulted, the patient underwent ORIF procedure today Plan -continue morphine 2 mg q.4h p.r.n. and 1 mg q.4h p.r.n. Recommended incentive spirometer Urinary tract infection Urinalysis at [facility] is positive for UTI Urinalysis at our facility also tested positive for nitrates and leukocyte esterase, WBC elevated at 11.2 Urine culture reported Gram-negative rods Plan Continue ceftriaxone Hypertension Blood pressure normal range Continue Patient's home medication lisinopril 20 mg Multiple sclerosis Continue home medication baclofen History of Osteoporosis Patient's previous reconciled med shows vitamin-D tablet We will recommend calcium and vitamin-D supplementations on discharge Depression/ Anxiety Continue home medication buspirone and citalopram Alcohol use disorder Cannabinoid use Initiated the patient on moderate alcohol withdrawal protocol Utox was positive for cannabinoids Ethyl alcohol <10 Consulted social media analyst and substance use navigator Code status: Full code DVT prophylaxis: SCD Pain management: Morphine 1 mg/2 mg p.r.n. Diet/nutrition: Regular diet Prognosis: Guarded Disposition: Plan discharge plan as per Dr. Rachel Mullen MD Internal medicine resident PGY-1 Date of Service: Dec 17, 2024 Billing Provider: LAILA HORN MD, JAHNAVI, RES Dec 17, 2024 18:48 SARAH SINGH, RES Dec 18, 2024 07:36
[2024-12-17] MEDS: ringers solution, lacted 1,000 ML IV SCH (18:54)
[2024-12-18] VITALS (9 sets, daily range): BP systolic 89–130; BP diastolic 45–84; PULSE 84–117; RESP 12–20; TEMP 97–97.9; O2SAT 91–96
[2024-12-18 06:12] LABS: CREATININE 0.39 MG/DL (0.40-0.90); TOTAL CARBON DIOXIDE 28.2 MMOL/L (24-32); eCRCL 136 ML/MIN; eGFR > 90 ML/MIN
[2024-12-18 06:15] LABS: MEAN PLATELET VOLUME 10.7 FL (7.4-10.4); RED CELL DISTRIBUTION WIDTH 13.7 % (11.5-14.5)
[2024-12-18] MEDS: normal saline 500ml IV soln 500 ML IV ONE (10:59)
--- NOTE | 2024-12-18 12:11 | PROGRESS NOTE- Residence ---
Progress Note - Resident Providers to CC Resident Creating Document: MARITA STEVEN RES ~ Antibiotic Timeout Antibiotic Ordered?: Yes Subjective Patient was seen and examined at bedside. Patient is complaining of 3/10 pain left knee and left hip incision site, controlled with medication. He is tolerating oral diet, no other symptoms reported. Objective Vital Signs Date Time Temp Pulse Resp B/P (MAP) Pulse Ox O2 Delivery O2 Flow Rate FiO2 12/18/24 10:40 94 122/63 (82) 99 103/69 (80) 99 97/47 (64) 12/18/24 09:57 17 95 Room Air 12/18/24 06:00 97.9 12/17/24 10:15 2.0 Result Diagram: 12/18/24 0503 12/18/24 0503 General: Awake, oriented to person, place and time. HEENT: Conjunctive are pink, sclerae clear, no icterus, pupil is equal in both sides, reactive to light, no ear discharge, no pharyngeal erythema or an edema. Neck: Supple, no JVD, no lymphadenopathy and thyromegaly. Chest: Equal air entry on both lungs, no additional sounds no rhonchi no wheezing at the moment. Cardiovascular: S1-S2 regular sinus rhythm and, regular rate, no gallops, no rubs, no murmurs Abdomen: Soft, nontender, Bowel sounds present on auscultation, no guarding, no rigidity Extremities: Trace left extremity pitting edema, capillary refill intact, peripheral pulsations are intact on both sides; left lower extremity covered in surgical dressing Central Nervous System: No focal neurological deficits, no motor or sensory weakness in all 4 extremities, could move all 4 extremities, 2+ deep tendon reflexes, negative Babinski. Musculoskeletal: No joint swelling, deformities, inflammations, and no scoliosis and back tenderness Skin: Warm and dry. Dry oral mucosa. Coagulation Studies Laboratory Tests Test 12/16/24 05:23 Prothrombin Time 10.2 SECONDS (9.0-12.0) INR International Normalized Ratio 1.0 INR Activated Partial Thromboplast Time 28 SECONDS (22-32) Coagulation Comments Assessment Assessment A 54-year-old female with history of hypertension, osteoporosis, anxiety, multiple sclerosis is transferred from [facility] for hip fracture after mechanical fall. Plan Plan Left intertrochanteric fracture secondary to mechanical fall S/p open reduction internal fixation on 12/17/[address] Ramos X-ray hip at [facility] shows acute displaced fracture of greater tuberosity of left femur with osteoarthritis changes in left hip joint Repeat hip x-ray at our facility showed :There is a mildly displaced fracture of the left intertrochanteric region. Orthopedic surgeon Dr. Ramos was consulted, the patient underwent ORIF procedure today -continue morphine 2 mg q.4h p.r.n. and 1 mg q.4h p.r.n. Recommended incentive spirometer 12/18/2024 POD-1 uncomplicated open reduction internal fixation Working with physical therapy - D/C plan: home Pain management Positive for orthostatic hypotension today NS 500 mL bolus one time Urinary tract infection Urinalysis at [facility] is positive for UTI Urinalysis at our facility also tested positive for nitrates and leukocyte esterase, WBC elevated at 11.2 Urine culture reported Gram-negative rods Plan Continue ceftriaxone 12/18/2024 Ceftriaxone day 3 WBC 13.1, procalcitonin < 0.05 UA culture: E coli pansensitive DC Sultana Hypertension - well controlled Blood pressure normal range Continue Patient's home medication lisinopril 20 mg Multiple sclerosis Continue home medication baclofen History of Osteoporosis Patient's previous reconciled med shows vitamin-D tablet We will recommend calcium and vitamin-D supplementations on discharge Depression/ Anxiety Continue home medication buspirone and citalopram Alcohol use disorder Cannabinoid use Initiated the patient on moderate alcohol withdrawal protocol Utox was positive for cannabinoids Ethyl alcohol <10 Consulted social sciences department chair and substance use navigator Code status: Full code DVT prophylaxis: SCD Pain management: Morphine/[place] Diet/nutrition: Regular diet Prognosis: Guarded Disposition: Continue medical treatment. D/c once surgery clearance. Resident attestation The above note has been reviewed and supervised by a senior resident PGY2/PGY3 Patient was seen, examined and discussed with the attending physician Date of Service: Dec 18, 2024 Billing Provider: LAILA HORN MD, LUCAS, RES Dec 18, 2024 12:11
[2024-12-18] MEDS: HYDROcodone/acetaminophen 5mg/325mg tablet PO PRN (12:42)
[2024-12-18] MEDS: magnesium hydroxide 30ml (MOM) UD suspension PO PRN (12:44)
[2024-12-19] VITALS (7 sets, daily range): BP systolic 88–142; BP diastolic 44–66; PULSE 81–101; RESP 14–16; TEMP 97.3–98.5; O2SAT 93–97
[2024-12-19 06:17] LABS: CREATININE 0.49 MG/DL (0.40-0.90); MEAN PLATELET VOLUME 10.6 FL (7.4-10.4); RED CELL DISTRIBUTION WIDTH 13.7 % (11.5-14.5); TOTAL CARBON DIOXIDE 28.6 MMOL/L (24-32); eCRCL 109 ML/MIN; eGFR > 90 ML/MIN
[2024-12-19] MEDS: normal saline 250 ML IV soln IV ONE (08:58)
--- NOTE | 2024-12-19 09:05 | PROGRESS NOTE ---
Progress Note Ortho Ortho Post Op Day #: 2 Follow Up ROS ROS No new complaints Exam Exam: Alert and Oreinted x4, Wound clean and dry Problem/Assessment/Plan Assessment\Plan: Cont. Physicial Therapy, Anticipate disch to rehab (Saturday or Saturday) Problems/Diagnosis: (1) Intertrochanteric fracture of left femur Results/Orders Result Diagram: 12/19/24 0508 12/19/24 0508 Problem Qualifiers (1) Intertrochanteric fracture of left femur: Qualified Codes: S72.142A - Displaced intertrochanteric fracture of left femur, initial encounter for closed fracture ANNE BAUTISTA Jr., MD Dec 19, 2024 09:05
[2024-12-19] MEDS: ringers solution, lacted 1,000 ML IV SCH (11:00)
--- NOTE | 2024-12-19 15:30 | PROGRESS NOTE- Residence ---
Progress Note - Resident Providers to CC Resident Creating Document: REYNA TUTTLE RES ~ Antibiotic Timeout Antibiotic Ordered?: Yes Subjective Patient was seen and examined on bedside, she reports minimal pain on surgical site, she feels dizzy because she reports that her BP is low since last night. Objective Vital Signs Date Time Temp Pulse Resp B/P (MAP) Pulse Ox O2 Delivery O2 Flow Rate FiO2 12/19/24 08:00 71 12/19/24 06:00 98.1 14 88/44 (59) 93 Room Air 12/17/24 10:15 2.0 Result Diagram: 12/19/24 0508 12/19/24 0508 General: Awake, oriented to person, place and time. HEENT: Conjunctive are pink, sclerae clear, no icterus, pupil is equal in both sides, reactive to light, no ear discharge, no pharyngeal erythema or an edema. Neck: Supple, no JVD, no lymphadenopathy and thyromegaly. Chest: Equal air entry on both lungs, no additional sounds no rhonchi no wheezing at the moment. Cardiovascular: S1-S2 regular sinus rhythm and, regular rate, no gallops, no rubs, no murmurs Abdomen: Soft, nontender, Bowel sounds present on auscultation, no guarding, no rigidity Extremities: Trace left extremity pitting edema, capillary refill intact, peripheral pulsations are intact on both sides; left lower extremity covered in surgical dressing Neuro: Decreased sensation bilateral lower extremities, power of muscles 3/5 lower extremities due to MS as per patient. Cranial nerves intact. Musculoskeletal: No joint swelling, deformities, inflammations, and no scoliosis and back tenderness Skin: Warm and dry. Dry oral mucosa. Coagulation Studies Laboratory Tests Test 12/16/24 05:23 Prothrombin Time 10.2 SECONDS (9.0-12.0) INR International Normalized Ratio 1.0 INR Activated Partial Thromboplast Time 28 SECONDS (22-32) Coagulation Comments Assessment Assessment A 54-year-old female with history of hypertension, osteoporosis, anxiety, multiple sclerosis is transferred from [facility] for hip fracture after mechanical fall. Plan Plan Left femur fracture post mechanical fall S/P 12/17/24 X-ray hip at [facility] shows acute displaced fracture of greater tuberosity of left femur with osteoarthritis changes in left hip joint Repeat hip x-ray at our facility showed :There is a mildly displaced fracture of the left intertrochanteric region. Orthopedic surgeon Dr. Ramos was consulted, the patient underwent ORIF procedure on 12/17/24 Plan continue morphine 2 mg q.4h p.r.n. and 1 mg q.4h p.r.n. Recommended incentive spirometery. Urinary tract infection Urinalysis at [facility] is positive for UTI Urinalysis at our facility also tested positive for nitrates and leukocyte esterase WBC count on POA 11.2, trended downward to normal Urine culture is positive for E coli Continue ceftriaxone day 4 Sultana has been DC Hypertension Blood pressure normal range Hold home medication lisinopril in view of soft blood pressure Patient blood pressure was low in view of that received IV NS 250 mL bolus and started patient on LR 75 mL/hour BP improved to 111/54 Multiple sclerosis Continue home medication baclofen History of Osteoporosis Patient's previous reconciled med shows vitamin-D tablet We will recommend calcium and vitamin-D supplementations on discharge Depression/ Anxiety Continue home medication buspirone and citalopram Alcohol use disorder Cannabinoid use Initiated the patient on moderate alcohol withdrawal protocol Utox was positive for cannabinoids Ethyl alcohol <10 Consulted manager social work and substance use navigator Code status: Full code DVT prophylaxis: SCD Pain management: Morphine 1 mg/2 mg p.r.n Diet/nutrition: Regular diet Disposition: Patient will be discharged tomorrow to Rehab most likely ,if blood pressure remains in normal range, and after surgical clearance, please administer DVT prophylaxis for patient on discharge. Reyna Tuttle PGY1 IM Resident Date of Service: Dec 19, 2024 Billing Provider: LAILA HORN MD, SANJAY, RES Dec 19, 2024 15:30
[2024-12-20] VITALS (7 sets, daily range): BP systolic 102–144; BP diastolic 53–75; PULSE 77–101; RESP 14–18; TEMP 97.8–98.2; O2SAT 95–99
[2024-12-20 05:52] LABS: MEAN PLATELET VOLUME 10.5 FL (7.4-10.4); RED CELL DISTRIBUTION WIDTH 13.1 % (11.5-14.5)
[2024-12-20 06:18] LABS: CREATININE 0.31 MG/DL (0.40-0.90); TOTAL CARBON DIOXIDE 27.1 MMOL/L (24-32); eCRCL 172 ML/MIN; eGFR > 90 ML/MIN
--- NOTE | 2024-12-20 18:41 | PROGRESS NOTE- Residence ---
Progress Note - Resident Providers to CC Resident Creating Document: BOKELLY RES ~ Antibiotic Timeout Antibiotic Ordered?: Yes MRSA Education MRSA Education Provided to pt: N/A Subjective Patient was seen and examined on bedside, she reports minimal pain on surgical site, she feels dizzy because she reports that her BP is low since last night. Objective Vital Signs Date Time Temp Pulse Resp B/P (MAP) Pulse Ox O2 Delivery O2 Flow Rate FiO2 12/20/24 16:30 101 143/71 (95) 85 144/63 (90) 95 135/75 (95) 12/20/24 15:10 18 12/20/24 08:00 97 Room Air 12/20/24 06:00 98.0 12/17/24 10:15 2.0 Result Diagram: 12/20/24 0512 12/20/24 0504 General: Awake, oriented to person, place and time. HEENT: Conjunctive are pink, sclerae clear, no icterus, pupil is equal in both sides, reactive to light, no ear discharge, no pharyngeal erythema or an edema. Neck: Supple, no JVD, no lymphadenopathy and thyromegaly. Chest: Equal air entry on both lungs, no additional sounds no rhonchi no wheezing at the moment. Cardiovascular: S1-S2 regular sinus rhythm and, regular rate, no gallops, no rubs, no murmurs Abdomen: Soft, nontender, Bowel sounds present on auscultation, no guarding, no rigidity Extremities: Trace left extremity pitting edema, capillary refill intact, peripheral pulsations are intact on both sides; left hip region covered in surgical dressing Neuro: Decreased sensation bilateral lower extremities, power of muscles 3/5 lower extremities due to MS as per patient. Cranial nerves intact. Musculoskeletal: No joint swelling, deformities, inflammations, and no scoliosis and back tenderness Skin: Warm and dry. Dry oral mucosa. Coagulation Studies Laboratory Tests Test 12/16/24 05:23 Prothrombin Time 10.2 SECONDS (9.0-12.0) INR International Normalized Ratio 1.0 INR Activated Partial Thromboplast Time 28 SECONDS (22-32) Coagulation Comments Assessment Assessment A 54-year-old female with history of hypertension, osteoporosis, anxiety, multiple sclerosis is transferred from [facility] for hip fracture after mechanical fall. Plan Plan Left femur fracture post mechanical fall S/P 12/17/24 X-ray hip at [facility] shows acute displaced fracture of greater tuberosity of left femur with osteoarthritis changes in left hip joint Repeat hip x-ray at our facility showed :There is a mildly displaced fracture of the left intertrochanteric region. Orthopedic surgeon Dr. Ramos was consulted, the patient underwent ORIF procedure on 12/17/24 Plan continue morphine 2 mg q.4h p.r.n. and 1 mg q.4h p.r.n. Recommended incentive spirometery. Urinary tract infection Urinalysis at [facility] is positive for UTI Urinalysis at our facility also tested positive for nitrates and leukocyte esterase WBC count on POA 11.2, trended downward to normal Urine culture is positive for E coli Continue ceftriaxone day 4 Sultana has been DC Hypertension Blood pressure normal range Hold home medication lisinopril in view of soft blood pressure Patient blood pressure was low in view of that received IV NS 250 mL bolus and started patient on LR 75 mL/hour BP improved to 111/54 Multiple sclerosis Continue home medication baclofen History of Osteoporosis Patient's previous reconciled med shows vitamin-D tablet We will recommend calcium and vitamin-D supplementations on discharge Depression/ Anxiety Continue home medication buspirone and citalopram Alcohol use disorder Cannabinoid use Initiated the patient on moderate alcohol withdrawal protocol Utox was positive for cannabinoids Ethyl alcohol <10 Consulted social worker and substance use navigator Code status: Full code DVT prophylaxis: Lovenox Pain management: Morphine 1 mg/2 mg p.r.n Diet/nutrition: Regular diet Disposition: Patient will be discharged tomorrow to Rehab most likely ,if blood pressure remains in normal range, and after surgical clearance, please administer DVT prophylaxis for patient on discharge. Kelly Banerjee MD Date of Service: Dec 20, 2024 Billing Provider: LAILA HORN MD,KELLY BANERJEE, RES Dec 20, 2024 18:41
[2024-12-20] MEDS: enoxaparin 40mg/0.4ml syringe SUBCUT SCH (19:17)
[2024-12-21 06:00] VITALS: BP 112/70; PULSE 94; RESP 16; TEMP 97.4; O2SAT 96
[2024-12-21 06:27] LABS: MEAN PLATELET VOLUME 10.0 FL (7.4-10.4); RED CELL DISTRIBUTION WIDTH 13.5 % (11.5-14.5)
[2024-12-21 06:33] LABS: CREATININE 0.53 MG/DL (0.40-0.90); TOTAL CARBON DIOXIDE 26.9 MMOL/L (24-32); eCRCL 100 ML/MIN; eGFR > 90 ML/MIN
[2024-12-21 08:00] VITALS: BP_SYST 110; BP_SYST 124; BP_SYST 128; BP_DIAS 57; BP_DIAS 64; PULSE 102; PULSE 91; PULSE 96; RESP 16; O2SAT 96
[2024-12-21 10:00] VITALS: BP 101/61; PULSE 90; RESP 16; TEMP 97.9; O2SAT 97
--- NOTE | 2024-12-21 13:38 | PROGRESS NOTE ---
Progress Note Ortho Ortho Post Op Day #: Other (post op day 4) ROS ROS No new complaints Exam Exam: Alert and Oreinted x4, Wound clean and dry Problem/Assessment/Plan Assessment\Plan: Cont. Physicial Therapy, Anticipate disch to rehab Problems/Diagnosis: (1) Intertrochanteric fracture of left femur Results/Orders Result Diagram: 12/21/24 0556 12/21/2456 Problem Qualifiers (1) Intertrochanteric fracture of left femur: Qualified Codes: S72.142A - Displaced intertrochanteric fracture of left femur, initial encounter for closed fracture ANNE BAUTISTA Jr., MD Dec 21, 2024 13:38
[2024-12-21 13:59] VITALS: RESP 16
--- NOTE | 2024-12-21 14:41 | DISCHARGE SUMMARY-Residence ---
Discharge Summary Providers to CC Resident Creating Document: KELLY BO, RES ~ Discharge Summary Admission Diagnosis: Left hip intertrochanteric fracture closed Hospital Course DATE OF ADMISSION: 12/16/2024 DATE OF DISCHARGE: 12/21/2024 Discharge Diagnosis\Comment: Left femur fracture post mechanical fall S/P 12/17/24 Urinary tract infection Hypertension Multiple sclerosis History of Osteoporosis Depression/ Anxiety Alcohol use disorder Cannabinoid use Operations\Procedures: Left hip open reduction with internal fixation Consultants: Dr. Ramos Complications: None Condition on DC: Stable New Medications: Enoxaparin Sodium (Enoxaparin Sodium) 40 Mg/0.4 Ml Syringe 40 MG SUBCUT DAILY@2000 for 28 Days, #1 VIAL Continued Medications: Baclofen (Baclofen) 20 Mg Tablet 2 TABLET PO BID, #90 TABLET 2 Refills Buspirone Hcl* (Buspar*) 10 Mg Tablet 0.5 TAB PO TID for 30 Days, #60 TAB Citalopram Hydrobromide (Celexa) 20 Mg Tablet 1 TAB PO DAILY for 30 Days, #90 TAB Ibuprofen (Ibuprofen) 800 Mg Tablet 1 TAB PO BID for pain for 10 Days, #30 TAB 0 Refills Lisinopril (Lisinopril) 20 Mg Tablet 1 TAB PO DAILY for 30 Days, #30 TAB Pravastatin Sodium (Pravastatin Sodium) 40 Mg Tablet 1 TAB PO HS for 30 Days, #30 TAB Discharge Summary: History of presenting illness: 54-year-old female with history of hypertension, osteoporosis, anxiety, multiple sclerosis is transferred from [facility] for hip fracture. She states that she had a ground level fall in her hallway yesterday evening. She states that she just laid there for a few minutes until her came and called 911. She was taken to [facility] where x-ray hip was done and it showed acute displaced fracture seen in the greater tuberosity of left femur with osteoarthritic changes in left hip joint and was transferred here. She states that her pain is 5/10, and that there is no swelling or bruising. She states that she had an episode of vomiting when she went to [facility] from the pain. She denies nausea now. She denies head trauma and confusion. She states that she had burning micturition, frequency, urgency since yesterday and she was about to go to her PCP today. Her urinalysis in [facility] is positive for UTI. She also complains diffuse abdominal discomfort which has been constant since yesterday. Her last bowel movement was yesterday. She denies constipation, diarrhea, fever, chills, back pain, changes in appetite or weight, chest pain, shortness of breath, palpitations. She states that she has osteoporosis and takes calcium for it, she also took IV Reclast once. Hospital course: The patient x-ray hip [facility] showed acute displaced fracture of greater tuberosity of left femur with osteoarthritis changes in left hip joint. Repeat hip x-ray at our facility showed :There is a mildly displaced fracture of the left intertrochanteric region. Orthopedic surgeon Dr. Ramos was consulted, the patient underwent ORIF procedure on 12/17/24. Her pain was managed with morphine 2 mg q.4h p.r.n. and 1 mg q.4h p.r.n. Recommended incentive spirometery q.1h. Patient also had a urinary tract infection UA showed positive nitrites and leukocyte esterase and culture was positive for E coli. Patient received ceftriaxone for five days at our facility. Lisinopril was continued to manage her hypertension and baclofen as needed for spasms related to multiple sclerosis. Patient also need vitamin-D supplementation given the history of osteoporosis. Patient takes her usual medications for anxiety and depression including busiprone and citalopram. She is currently on moderate alcohol withdrawal protocol. java web services developer was consulted and referrals were provided. U tox was positive for cannabis. Lovenox for DVT prophylaxis. Physical exam at discharge: General: Awake, oriented to person, place and time. HEENT: Conjunctive are pink, sclerae clear, no icterus, pupil is equal in both sides, reactive to light, no ear discharge, no pharyngeal erythema or an edema. Neck: Supple, no JVD, no lymphadenopathy and thyromegaly. Chest: Equal air entry on both lungs, no additional sounds no rhonchi no wheezing at the moment. Cardiovascular: S1-S2 regular sinus rhythm and, regular rate, no gallops, no rubs, no murmurs Abdomen: Soft, nontender, Bowel sounds present on auscultation, no guarding, no rigidity Extremities: Trace left extremity pitting edema, capillary refill intact, peripheral pulsations are intact on both sides; left hip region covered in surgical dressing Neuro: Decreased sensation bilateral lower extremities, power of muscles 3/5 lower extremities due to MS as per patient. Cranial nerves intact. Musculoskeletal: No joint swelling, deformities, inflammations, and no scoliosis and back tenderness Skin: Warm and dry. Dry oral mucosa. Vital Signs Date Time Temp Pulse Resp B/P (MAP) Pulse Ox O2 Delivery O2 Flow Rate FiO2 12/21/24 13:59 16 12/21/24 10:00 97.9 90 101/61 (74) 97 12/21/24 08:00 Room Air 12/17/24 10:15 2.0 Laboratory Tests Test 12/20/24 05:04 12/20/24 05:12 12/21/24 05:56 Sodium Level 145 MMOL/L 142 MMOL/L Potassium Level 4.0 MMOL/L 4.0 MMOL/L Chloride Level 110 MMOL/L 108 MMOL/L Carbon Dioxide Level 27.1 MMOL/L 26.9 MMOL/L Anion Gap 8 7 Blood Urea Nitrogen 7 MG/DL 7 MG/DL Creatinine 0.31 MG/DL 0.53 MG/DL Estimated GFR/1.73 m2 > 90 ML/MIN > 90 ML/MIN BUN/Creatinine Ratio 22.6 13.2 Glucose Level 92 MG/DL 104 MG/DL Calcium Level 8.3 MG/DL 8.6 MG/DL Albumin 2.4 G/DL 2.4 G/DL Chemistry Comments White Blood Count 8.0 X10'3 6.7 X10'3 Red Blood Count 3.66 X10'6 3.64 X10'6 Hemoglobin 11.7 g/dl 11.7 g/dl Hematocrit 34.5 % 34.5 % Mean Corpuscular Volume 94.3 FL 94.8 FL Mean Corpuscular Hemoglobin 31.9 PG 32.2 PG Mean Corpuscular Hemoglobin Concent 33.8 g/dL 34.0 g/dL Red Cell Distribution Width 13.1 % 13.5 % Platelet Count 232 X10'3 248 X10'3 Mean Platelet Volume 10.5 FL 10.0 FL Neutrophils (%) (Auto) 59.1 % 63.7 % Lymphocytes (%) (Auto) 23.2 % 20.9 % Monocytes (%) (Auto) 10.3 % 8.1 % Eosinophils (%) (Auto) 6.9 % 6.5 % Basophils (%) (Auto) 0.5 % 0.8 % Neutrophils # (Auto) 4.7 X10'3 4.3 X10'3 Lymphocytes # (Auto) 1.8 X10'3 1.4 X10'3 Monocytes # (Auto) 0.8 X10'3 0.5 X10'3 Eosinophils # (Auto) 0.6 X10'3 0.4 X10'3 Basophils # (Auto) 0.0 X10'3 0.1 X10'3 CBC Comment Imaging: Hip x-ray: There is a mildly displaced fracture of the left intertrochanteric region. Repeat hip x-ray postop: ORIF of the left hip transfixing proximal femoral shaft fracture Discharge recommendations: Follow up with your PCP, orthopedic surgeon in a week. Continue Lovenox SC for four weeks for DVT prophylaxis Continue physical therapy as tolerated and nonweightbearing as indicated by the orthopedic surgeon. Return to the ER he had worsening pain in the left hip or signs of infection including erythema, drainage of pus from surgical site. *Problems/Diagnosis: (1) Intertrochanteric fracture of left femur (2) Fracture of femur Status: Acute Total Time Spent on D/C: > 30 Minutes Date of Service: Dec 21, 2024 Billing Provider: LAILA HORN MD Problem Qualifiers (1) Intertrochanteric fracture of left femur: Encounter type: initial encounter Fracture type: closed Fracture alignment: displaced Qualified Codes: S72.142A - Displaced intertrochanteric fracture of left femur, initial encounter for closed fracture KELLY BO, RES Dec 21, 2024 13:50
== END 2024-12-21 16:54 | disposition swing bed (61) | DRG 308 ==
LOC: ER 02:14 → ED HOLD 03:01 → ORTHO 4S 04:29
PROVIDERS: ADMIT Internal Medicine Pulmonary Disease; ATTEND Internal Medicine Pulmonary Disease
PROC: 0QS734Z Reposition Left Upper Femur with Internal Fixation Device, Percutaneous Approach (ICD-10-PCS; principal; 2024-12-17 07:13)
DX: S72.142A Displaced intertrochanteric fracture of left femur, initial encounter for closed fracture (principal); B96.20 Unspecified Escherichia coli [E. coli] as the cause of diseases classified elsewhere; F10.10 Alcohol abuse, uncomplicated; F32.A Depression, unspecified; F41.9 Anxiety disorder, unspecified; G35.D Multiple sclerosis, unspecified; G89.29 Other chronic pain; Y90.0 Blood alcohol level of less than 20 mg/100 ml; N39.0 Urinary tract infection, site not specified; M16.12 Unilateral primary osteoarthritis, left hip; F17.210 Nicotine dependence, cigarettes, uncomplicated; I10 Essential (primary) hypertension; M81.0 Age-related osteoporosis without current pathological fracture; W18.39XA Other fall on same level, initial encounter; Y93.89 Activity, other specified; Y92.89 Other specified places as the place of occurrence of the external cause; Y99.8 Other external cause status; Z80.42 Family history of malignant neoplasm of prostate; Z80.3 Family history of malignant neoplasm of breast; Z98.51 Tubal ligation status
CPT/HCPCS: 36415; 73502; 76000; 80048; 80053; 80061; 80305; 80320; 81001; 82948; 83036; 83605; 83735; 83880; 84100; 84145; 85025; 85610; 85730; 86885; 86900; 86901; 87040; 87077; 87081; 87088; 87186; 93005; 97110; 97116; 97161; 97530; A4615; A4618; A6258; A7000; C1713; G0378; J0131; J0696; J1100; J1171; J1650; J2250; J2270; J2405; J2704; J3010; J3411; J3490; J7040; J7050; J7120